=== PATIENT | female | born 1975 | race Caucasian/White ===

== ENCOUNTER 2017-07-15 18:47 | Emergency (ER) | payer BC ==
[2017-07-15] MEDS ORDERED: DIPH/PERTUSS(ACELL)/TETANUS VAC/PF 0.5 ML SYR (>=10YO) IM ONE (20:23)
[2017-07-15] MEDS ORDERED: HYDROCODONE/ACETAMINOPHEN 5-325 MG (6 TAB/ER DISP) PO PRN (20:25)
--- NOTE | 2017-07-15 20:27 | ER Document Report ---
HPI - HPI Patient complains to provider of: Finger injury Onset: Yesterday Onset/Duration: Sudden Quality of pain: Achy Pain Level: 5 Context: Patient was working on radha and accidentally slipped hitting her right finger with a hammer. Patient complains of right second finger tenderness and swelling. Associated Symptoms: Other - Right second finger pain Exacerbated by: Movement Relieved by: Denies Similar symptoms previously: No Recently seen / treated by doctor: No - ROS ROS below otherwise negative: Yes Systems Reviewed and Negative: Yes All other systems reviewed and negative - CONSTITUTIONAL Constitutional: DENIES: Fever, Chills - MUSCULOSKELETAL Musculoskeletal: REPORTS: Extremity pain, Swelling - DERM Skin Color: Normal Skin Problems: Abrasion Past Medical History - General Information source: Patient - Social History Smoking Status: Never Smoker Frequency of alcohol use: None Drug Abuse: None Occupation: Nurse Lives with: Family Family History: Reviewed & Not Pertinent Patient has suicidal ideation: No Patient has homicidal ideation: No - Medical History Medical History: Negative Renal/ Medical History: Denies: Hx Peritoneal Dialysis Surgical Hx: Negative Vertical Provider Document - CONSTITUTIONAL Agree With Documented VS: Yes Exam Limitations: No Limitations General Appearance: WD/WN, No Apparent Distress - INFECTION CONTROL TRAVEL OUTSIDE OF THE [place] IN LAST 30 DAYS: No - HEENT HEENT: Atraumatic, Normocephalic - NECK Neck: Normal Inspection - RESPIRATORY Respiratory: No Respiratory Distress - CARDIOVASCULAR Pulses: Normal: Radial - MUSCULOSKELETAL/EXTREMETIES Musculoskeletal/Extremeties: Tender - Right second finger tenderness about the PIP joints with overlying swelling. Patient with small abrasion overlying joint. Normal skin color to finger, no concern for cellulitis at this time. - NEURO Level of Consciousness: Awake, Alert, Appropriate Motor/Sensory: No Motor Deficit, No Sensory Deficit - DERM Integumentary: Warm, Dry Course - Re-evaluation Re-evalutation: 07/15/17 20:24 X-ray without any evidence of bony abnormality, will treat as a sprain and update tetanus regarding her abrasion to the area. Patient has her own splint, finger immobilized with good alignment, finger neurovascularly intact. - Vital Signs Vital signs: Temp Pulse Resp BP Pulse Ox 97.9 F 79 16 131/90 H 100 07/15/17 18:56 07/15/17 18:56 07/15/17 18:56 07/15/17 18:56 07/15/17 18:56 - Diagnostic Test Radiology reviewed: Pending, Image reviewed Discharge - Discharge Clinical Impression: Abrasion Finger sprain Qualifiers: Encounter type: initial encounter Finger: index finger Sprain of finger site: unspecified site Laterality: right Qualified Code(s): S63.610A - Unspecified sprain of right index finger, initial encounter Condition: Stable Disposition: HOME, SELF-CARE Instructions: Abrasions ([facility]), Ice & Elevation ([facility]), Sprained Finger ([facility]), Temporary Splint ([facility]), Tetanus Immunization Given ([facility]) Additional Instructions: Return immediately for any new or worsening symptoms Followup with your primary care provider, call tomorrow to make a followup appointment Follow-up with orthopedic doctor for any continued pain or problems Prescriptions: Naproxen [Naprosyn 250 Nmg Tablet] 1 tab PO BID #14 tablet Forms: Return to Work Referrals: NIKOLE PARKER MD [Primary Care Provider] - Follow up as needed CAN METZGER DO [ACTIVE STAFF] - Follow up as needed
--- NOTE | 2017-07-15 20:28 | RADIOLOGY REPORT (SQ) ---
EXAM DESCRIPTION: FINGER RIGHT COMPLETED DATE/TIME: 07/15/2017 7:50 pm REASON FOR STUDY: Pain s/p injury COMPARISON: None. NUMBER OF VIEWS: Three views. TECHNIQUE: AP, lateral, and oblique images acquired of the right right LIMITATIONS: None. FINDINGS: MINERALIZATION: Normal. BONES: No acute fracture or dislocation. No worrisome bone lesions. SOFT TISSUES: No soft tissue swelling. No foreign body. OTHER: No other significant finding. IMPRESSION: NO RADIOGRAPHIC EVIDENCE OF ACUTE INJURY. COMMENT: SITE OF TRAUMA/COMPLAINT MARKED/STAMP COMPLETED: No TECHNICAL DOCUMENTATION: JOB ID: [id number] [place]-72 2010 [employer]- All Rights Reserved Reading location - IP/workstation name: [employer]
[2017-07-15 21:10] VITALS: BP 130/84
== END 2017-07-15 20:45 | disposition home or self-care (01) ==
LOC: ER 18:47
DX: S63.610A Unspecified sprain of right index finger, initial encounter (principal); S60.410A Abrasion of right index finger, initial encounter; M79.89 Other specified soft tissue disorders; W22.8XXA Striking against or struck by other objects, initial encounter
CPT/HCPCS: 90471; 90715; 99283

== ENCOUNTER 2018-06-21 05:20 | Day surgery (SDC) | payer BC ==
[2018-06-17 11:26] LABS: APPEARANCE,URINE CLEAR; BILIRUBIN,URINE NEGATIVE (NEGATIVE); COLOR,URINE YELLOW; GLUCOSE, URINE NEGATIVE (NEGATIVE); KETONES,URINE NEGATIVE (NEGATIVE); LEUKOCYTE ESTERASE,URINE NEGATIVE (NEGATIVE); NITRITE,URINE NEGATIVE (NEGATIVE); PROTEIN,URINE NEGATIVE (NEGATIVE); UROBILINOGEN,URINE NEGATIVE mg/dL (<2.0)
[2018-06-17 12:12] LABS: HEMATOCRIT 29.2 % (36.0-47.0); HEMOGLOBIN 9.1 g/dL (12.0-15.5); MEAN CORPUSCULAR HEMOGLOBIN 19.2 pg (27.0-33.4); MEAN CORPUSCULAR HGB CONC 31.3 g/dL (32.0-36.0); PLATELET COUNT 430 10^3/uL (150-450); RED BLOOD COUNT 4.76 10^6/uL (3.72-5.28); RED CELL DISTRIBUTION WIDTH 18.3 % (11.5-14.0)
[2018-06-17 12:13] LABS: MEAN CORPUSCULAR VOLUME 61 fl (80-97)
[2018-06-17 12:40] LABS: ANION GAP 12 (5-19); BLOOD UREA NITROGEN 20 mg/dL (7-20); CALCIUM 9.9 mg/dL (8.4-10.2); CARBON DIOXIDE 23 mmol/L (22-30); CHLORIDE 103 mmol/L (98-107); GLUCOSE 87 mg/dL (75-110); POTASSIUM 4.5 mmol/L (3.6-5.0)
[2018-06-18 13:39] LABS: PATH REVIEW PATHOLOGIST REVIEWED
[~2018-06-21 05:20] MED LIST: CEFAZOLIN 1 GM/D5W RTU 1 GM/50 ML RTUPB IV ONE; CEFAZOLIN 1 GM/D5W RTU 1 GM/50 ML RTUPB IV PRN; LACTATED RINGERS 1000 ML IV PRN; LIDOCAINE 0.5% INJ-PF (5 MG/ML) 50 ML SDV SUBCUT PRN
[2018-06-21] MEDS ORDERED: FENTANYL CITRATE INJ/PF 100 MCG/2 ML AMPUL ONE (07:00)
[2018-06-21] MEDS ORDERED: ONDANSETRON HCL INJ/PF 4 MG/2 ML SDV ONE (07:01)
[2018-06-21] MEDS ORDERED: PROPOFOL INJ 200 MG/20 ML VIAL IV ONE (07:01)
[2018-06-21] MEDS ORDERED: MIDAZOLAM 2 MG/2 ML INJ ONE (07:01)
[2018-06-21] MEDS ORDERED: LIDOCAINE 1% INJ-PF (10 MG/ML) 30 ML SDV ONE (07:10)
[2018-06-21] MEDS ORDERED: MEPERIDINE HCL/PF INJ 25 MG/1 ML DISP.SYRIN IV PRN (07:39)
[2018-06-21] MEDS ORDERED: FENTANYL CITRATE INJ/PF 100 MCG/2 ML AMPUL IV PRN ×3 (07:39)
[2018-06-21] MEDS ORDERED: PROMETHAZINE HCL INJ 25 MG/1 ML VIAL IV PRN (07:39)
[2018-06-21] MEDS ORDERED: DIPHENHYDRAMINE HCL 50 MG/ML VIAL IV PRN (07:39)
--- NOTE | 2018-06-21 09:09 | OPERATIVE REPORT E ---
Operative Report NAME: LINDA NUNN : 1975 AGE: 42Y DATE OF SURGERY: 06/21/2018 ROOM: PREOPERATIVE DIAGNOSIS: Menorrhagia. POSTOPERATIVE DIAGNOSIS: Menorrhagia. OPERATION: Hysteroscopy and NovaSure ablation. SURGEON: PO HULL M.D. ANESTHESIA: LMA. COMPLICATIONS: None. FINDINGS: Normal uterus. Normal cavity. No adnexal masses noted on EUA. Bladder was left undrained. Cervix was normal. Uterine measurements were 5 cm length x 2.9 cm width. A 2-minute burn was performed, and approximately 125 watt-seconds of power was used. INDICATIONS FOR PROCEDURE: The patient had outpatient bleeding unresponsive to the usual outpatient management. She had been evaluated by Dr. Quezada with normal Pap smear and endometrial biopsy and ultrasound. The patient understands the risks of bleeding, infection, anesthesia, damage to organs and tissues. She understands no guarantees or warranties regarding future amenorrhea were made with the patient. She had failed outpatient management. DESCRIPTION OF PROCEDURE: The patient was taken to the operating room and placed in modified lithotomy position, adequate anesthesia was ascertained, prepped and draped in the usual manner for a hysteroscopy. EUA was performed after a short time out was performed and antibiotics had been given. Tenaculum was placed on the anterior lip of the cervix. The cervix was slowly and methodically dilated to admit the operative hysteroscope. Uterine measurements were taken. The NovaSure device was deployed after uterine integrity was confirmed. Integrity was reconfirmed with gas testing. Burn ensued and rehysteroscopy demonstrated good uterine integrity and good thorough burn throughout. At completion of the procedure the patient was awakened and taken to recovery in stable condition. DICTATING PHYSICIAN: PO HULL M.D. [id number] PHY#: [id number] ID: [id number] JOB#: [id number] ACCT: [id number] cc:PO HULL M.D. >
[2018-06-21 09:42] VITALS: BP 129/83
== END 2018-06-21 09:30 | disposition home or self-care (01) ==
LOC: OROUT 05:20
PROVIDERS: ATTEND Specialist
DX: N92.0 Excessive and frequent menstruation with regular cycle (principal)
CPT/HCPCS: 86900; 86901; 36415; 86850; 85027; 81025; 80048; 81001; 58563; J2250; J0690; J3010; J3490; J2405; J2704; 952

== ENCOUNTER → 2019-09-12 | Outpatient (CLI) | payer BC | LOC: RDC 13:59 | PROVIDERS: ATTEND Nurse Practitioner Family | DX: Z53.9 Procedure and treatment not carried out, unspecified reason (principal) | CPT/HCPCS: 87635; C9803 ==

== ENCOUNTER → 2020-03-05 | Outpatient (CLI) | payer BC ==
[~2020-03-05] MED LIST changes: -CEFAZOLIN 1 GM/D5W RTU 1 GM/50 ML RTUPB IV ONE; -CEFAZOLIN 1 GM/D5W RTU 1 GM/50 ML RTUPB IV PRN; +COVID-19 VACCINE (PFIZER)/PF 30 MCG/0.3 ML VIAL IM ONE; +EPINEPHRINE INJ/PF 1 MG/1 ML AMPULE IM PRN; -LACTATED RINGERS 1000 ML IV PRN; -LIDOCAINE 0.5% INJ-PF (5 MG/ML) 50 ML SDV SUBCUT PRN
== END ==
LOC: EMPHEALTH 13:20
PROVIDERS: ATTEND Internal Medicine
DX: Z23 Encounter for immunization (principal)
CPT/HCPCS: 91300

== ENCOUNTER → 2020-03-26 | Outpatient (CLI) | payer BC | LOC: EMPHEALTH 13:12 | PROVIDERS: ATTEND Internal Medicine | DX: Z23 Encounter for immunization (principal) | CPT/HCPCS: 91300 ==